=== PATIENT | male | born 1970 | race Caucasian/White ===

== ENCOUNTER 2023-07-19 02:00 | Emergency (ER) | payer BC, MEDICAID ==
[2023-07-19] MEDS ORDERED: Sodium Chloride 0.9% 10 ML Syringe FLUSH PRN (02:28)
[2023-07-19 02:32] LABS: BASOPHILS ABSOLUTE AUTO 0.12 10^3/uL (0.00-0.10); BASOPHILS PERCENT AUTO 1.1 % (0.0-1.0); EOSINOPHILS ABSOLUTE AUTO 0.83 10^3/uL (0.10-0.30); EOSINOPHILS PERCENT AUTO 7.3 % (1.0-3.0); HEMOGLOBIN 8.3 g/dL (13.0-17.0); IMMATURE GRAN ABSOLUTE AUTO 0.06 10^3/uL (0.00-0.50); IMMATURE GRAN PERCENT AUTO 0.5 % (0.0-5.0); LYMPHOCYTES ABSOLUTE AUTO 1.51 10^3/uL (1.00-4.00); LYMPHOCYTES PERCENT AUTO 13.2 % (20.0-40.0); MEAN CORPUSCULAR HEMOGLOBIN 28.4 pg (27.0-31.0); MEAN CORPUSCULAR HGB CONC 31.9 g/dL (32.0-36.0); MEAN PLATELET VOLUME 10.1 fL (7.4-10.4); MONOCYTES PERCENT AUTO 9.6 % (2.0-8.0); NEUTROPHILS ABSOLUTE AUTO 7.78 10^3/uL (2.50-7.00); NEUTROPHILS PERCENT AUTO 68.3 % (50.0-70.0); PLATELET COUNT,PLT 424 10^3/uL (150-400); RED BLOOD CELL COUNT 2.92 10^6/uL (4.50-6.00); RED CELL DISTRIBUTION WIDTH 17.7 % (11.5-14.5)
[2023-07-19 02:48] LABS: ALBUMIN 3.15 g/dL (3.40-5.00); ANION GAP 18.8 mmol/L (5-15); BILIRUBIN TOTAL 0.3 mg/dL (0.2-1.0); CALCIUM 9.4 mg/dL (8.7-10.3); CARBON DIOXIDE,CO2 26.1 mmol/L (21.0-32.0); EST CRCL DRUG DOSING (CG) 12.81 mL/min; POTASSIUM,K 3.9 mmol/L (3.5-5.1); PROTEIN TOTAL,TP 8.1 g/dL (6.4-8.2)
[2023-07-19 03:05] LABS: INR 1.1 (0.9-1.1)
[2023-07-19 03:46] LABS: APPEARANCE,URINE CLEAR (CLEAR); BILIRUBIN,URINE NEGATIVE (NEGATIVE); COLOR,URINE YELLOW (YELLOW); GLUCOSE,URINE 100 mg/dL (NEGATIVE); KETONES,URINE NEGATIVE (NEGATIVE); LEUKOCYTE ESTERASE,URINE NEGATIVE (NEGATIVE); NITRITE,URINE NEGATIVE (NEGATIVE); OCCULT BLOOD,URINE TRACE-INTACT (NEGATIVE); PH,URINE 8.5 (5.0-9.0); PROTEIN,URINE 100 mg/dL (NEGATIVE); UROBILINOGEN,URINE 0.2 E.U./dL (0.2-1.0)
[2023-07-19 03:47] LABS: BACTERIA,URINE OCCASIONAL /HPF (NONE TO FEW); EPITHELIAL CELLS,URINE OCCASIONAL /LPF; RBC,URINE 0-5 /HPF (0-5); WBC,URINE 0-5 /HPF (0-5)
[2023-07-19] MEDS ORDERED: Iopamidol 755 Mg/ML 100 ML Bottle IV ONE (04:04)
[2023-07-19] MEDS ORDERED: Sodium Chloride 0.9% 100 ML IV SCH (04:15)
[2023-07-19] MEDS ORDERED: Furosemide 40 MG/4 ML VIAL IVPUSH ONE (05:07)
[2023-07-19] MEDS ORDERED: Furosemide 40 MG/4 ML VIAL ONE (05:08)
[2023-07-19 06:20] LABS: INFLUENZA A NAA NEGATIVE (NEGATIVE); INFLUENZA B NAA NEGATIVE (NEGATIVE); RESPIRATORY SYNCYTIAL VIR NAA NEGATIVE (NEGATIVE)
[2023-07-19] MEDS ORDERED: Ondansetron 4 MG/2 ML SDV IVPUSH ONE (06:31)
[2023-07-19 06:41] LABS: CORONAVIRUS COVID-19 NAA NEGATIVE (NEGATIVE)
== END 2023-07-19 07:22 ==
LOC: KA.ED 02:00
DX: T81.49XA Infection following a procedure, other surgical site, initial encounter (principal); S31.109A Unspecified open wound of abdominal wall, unspecified quadrant without penetration into peritoneal cavity, initial encounter; J81.1 Chronic pulmonary edema; E11.22 Type 2 diabetes mellitus with diabetic chronic kidney disease; I12.0 Hypertensive chronic kidney disease with stage 5 chronic kidney disease or end stage renal disease; N18.6 End stage renal disease; D63.1 Anemia in chronic kidney disease; I25.2 Old myocardial infarction; R09.02 Hypoxemia; I71.20 Thoracic aortic aneurysm, without rupture, unspecified; I71.23 Aneurysm of the descending thoracic aorta, without rupture; J90 Pleural effusion, not elsewhere classified; R79.89 Other specified abnormal findings of blood chemistry; E78.00 Pure hypercholesterolemia, unspecified; Z99.2 Dependence on renal dialysis; Z46.89 Encounter for fitting and adjustment of other specified devices; Z20.822 Contact with and (suspected) exposure to COVID-19; Z95.5 Presence of coronary angioplasty implant and graft; E66.9 Obesity, unspecified; Z87.891 Personal history of nicotine dependence; Z79.899 Other long term (current) drug therapy; Z79.02 Long term (current) use of antithrombotics/antiplatelets; Z79.82 Long term (current) use of aspirin; Z88.1 Allergy status to other antibiotic agents; Z88.8 Allergy status to other drugs, medicaments and biological substances
CPT/HCPCS: 0241U; 36416; 71045; 71275; 80053; 81001; 82140; 83880; 84484; 85025; 85379; 85610; 86140; 93005; 93010; 96374; 96375; 99284; 99285-25; J1940; J2405; J3490; Q9967

== ENCOUNTER 2023-08-01 15:49 | Inpatient (IN) | payer MEDICAID ==
[2023-08-01] MEDS ORDERED: Sodium Chloride 0.9% 10 ML Syringe FLUSH PRN (16:07)
[2023-08-01 16:17] LABS: BASOPHILS ABSOLUTE AUTO 0.16 10^3/uL (0.00-0.10); BASOPHILS PERCENT AUTO 1.1 % (0.0-1.0); EOSINOPHILS ABSOLUTE AUTO 0.77 10^3/uL (0.10-0.30); EOSINOPHILS PERCENT AUTO 5.4 % (1.0-3.0); HEMATOCRIT 27.3 % (40.0-52.0); HEMOGLOBIN 8.5 g/dL (13.0-17.0); IMMATURE GRAN ABSOLUTE AUTO 0.07 10^3/uL (0.00-0.50); IMMATURE GRAN PERCENT AUTO 0.5 % (0.0-5.0); LYMPHOCYTES ABSOLUTE AUTO 1.91 10^3/uL (1.00-4.00); LYMPHOCYTES PERCENT AUTO 13.5 % (20.0-40.0); MEAN CORPUSCULAR HEMOGLOBIN 28.4 pg (27.0-31.0); MEAN CORPUSCULAR HGB CONC 31.1 g/dL (32.0-36.0); MEAN CORPUSCULAR VOLUME 91.3 fL (82.0-92.0); MEAN PLATELET VOLUME 10.2 fL (7.4-10.4); MONOCYTES ABSOLUTE AUTO 1.43 10^3/uL (0.10-0.80); MONOCYTES PERCENT AUTO 10.1 % (2.0-8.0); NEUTROPHILS ABSOLUTE AUTO 9.85 10^3/uL (2.50-7.00); NEUTROPHILS PERCENT AUTO 69.4 % (50.0-70.0); PLATELET COUNT,PLT 480 10^3/uL (150-400); RED BLOOD CELL COUNT 2.99 10^6/uL (4.50-6.00); RED CELL DISTRIBUTION WIDTH 19.1 % (11.5-14.5); WHITE BLOOD CELL COUNT,WBC 14.19 10^3/uL (5.00-10.00)
[2023-08-01 16:19] LABS: BASE EXCESS ARTERIAL -1 mmol/L (-2-3); BICARBONATE,ARTERIAL 23.1 mmol/L (22-26); O2 DELIVERY DEVICE NASAL CANNULA; O2 SATURATION ARTERIAL 97 % (95-98); PCO2 ARTERIAL 35 mmHG (35-45); PH,ARTERIAL 7.43 (7.35-7.45); PO2 ARTERIAL 92 mmHG (80-105)
[2023-08-01 16:35] LABS: ALANINE AMINOTRANSFERASE,ALT 13 U/L (14-63); ALBUMIN 3.29 g/dL (3.40-5.00); ALKALINE PHOSPHATASE 119 U/L (46-116); ANION GAP 18.7 mmol/L (5-15); ASPARTATE AMNIOTRANSFERASE,AST 13 U/L (15-37); BILIRUBIN TOTAL 0.3 mg/dL (0.2-1.0); CALCIUM 9.8 mg/dL (8.7-10.3); CARBON DIOXIDE,CO2 26.6 mmol/L (21.0-32.0); CHLORIDE,CL 100 mmol/L (98-107); CREATININE 6.94 mg/dL (0.51-1.17); GLUCOSE RANDOM 150 mg/dL (70-140); POTASSIUM,K 5.3 mmol/L (3.5-5.1); PROTEIN TOTAL,TP 7.9 g/dL (6.4-8.2); SODIUM,NA 140 mmol/L (136-145)
[2023-08-01 16:36] LABS: BLOOD UREA NITROGEN,BUN 70 mg/dL (7-18); ESTIMATED GFR 9 mL/min (>=60)
[2023-08-01 17:17] LABS: AMPHETAMINES SCREEN, URINE NEGATIVE (NEGATIVE); BARBITURATE SCREEN,URINE NEGATIVE (NEGATIVE); BENZODIAZEPINES SCREEN,URINE NEGATIVE (NEGATIVE); COCAINE METABOLITES,URINE NEGATIVE (NEGATIVE); METHADONE SCREEN, URINE NEGATIVE (NEGATIVE); METHAMPHETAMINES SCREEN, URINE NEGATIVE (NEGATIVE); OXYCODONE SCREEN,URINE NEGATIVE (NEGATIVE); PCP SCREEN,URINE NEGATIVE (NEGATIVE); PROPOXYPHENE SCREEN,URINE NEGATIVE (NEGATIVE); TCA SCREEN,URINE NEGATIVE (NEGATIVE); THC SCREEN,URINE 50 NG/ML NEGATIVE (NEGATIVE)
[2023-08-01 17:56] LABS: APPEARANCE,URINE CLEAR (CLEAR); BILIRUBIN,URINE NEGATIVE (NEGATIVE); COLOR,URINE YELLOW (YELLOW); GLUCOSE,URINE 100 mg/dL (NEGATIVE); KETONES,URINE NEGATIVE (NEGATIVE); LEUKOCYTE ESTERASE,URINE NEGATIVE (NEGATIVE); NITRITE,URINE NEGATIVE (NEGATIVE); OCCULT BLOOD,URINE TRACE-LYSED (NEGATIVE); PH,URINE 8.5 (5.0-9.0); PROTEIN,URINE 100 mg/dL (NEGATIVE); UROBILINOGEN,URINE 0.2 E.U./dL (0.2-1.0)
[2023-08-01 17:57] LABS: BACTERIA,URINE RARE /HPF (NONE TO FEW); EPITHELIAL CELLS,URINE RARE /LPF; RBC,URINE 0-5 /HPF (0-5); WBC,URINE 0-5 /HPF (0-5)
[2023-08-01] MEDS ORDERED: oxyCODONE 5 MG Tab PO PRN (21:35)
[2023-08-01] MEDS ORDERED: Ondansetron 4 MG/2 ML SDV IV PRN (21:45)
[2023-08-01] MEDS ORDERED: Sodium Chloride 0.9% 500 ML IV SCH (21:45)
[2023-08-01] MEDS ORDERED: LORazepam 2 MG/ML SDV IVPUSH ONE (22:00)
[2023-08-01] MEDS ORDERED: LORazepam 0.5 MG Tab PO PRN (22:01)
[2023-08-01] MEDS: Metoprolol Tartrate 50 MG Tab PO SCH (22:32)
[2023-08-01] MEDS: Sucralfate 1 GM Tab PO SCH (22:32)
[2023-08-01] MEDS: Isosorbide Mononitrate 30 MG Tab.ER PO SCH (22:35)
[2023-08-01] MEDS: Heparin Sodium 5,000 Units/ML Vial SUBCUT SCH (22:37)
[2023-08-01] MEDS: Cefepime 1 GM in Sodium Chloride 0.9% 50 ML IV SCH (22:39)
[2023-08-02] MEDS ORDERED: Haloperidol Lactate 5 MG/ML SDV IM ONE ×2 (00:22→16:22)
[2023-08-02] MEDS: LORazepam 2 MG/ML SDV IVPUSH PRN ×3 (02:29→10:13)
[2023-08-02] MEDS: Heparin Sodium 5,000 Units/ML Vial SUBCUT SCH ×4 (05:32→21:11)
[2023-08-02 07:13] LABS: BASOPHILS ABSOLUTE AUTO 0.21 10^3/uL (0.00-0.10); BASOPHILS PERCENT AUTO 1.5 % (0.0-1.0); EOSINOPHILS ABSOLUTE AUTO 0.72 10^3/uL (0.10-0.30); HEMATOCRIT 29.8 % (40.0-52.0); HEMOGLOBIN 9.1 g/dL (13.0-17.0); IMMATURE GRAN ABSOLUTE AUTO 0.05 10^3/uL (0.00-0.50); IMMATURE GRAN PERCENT AUTO 0.3 % (0.0-5.0); LYMPHOCYTES ABSOLUTE AUTO 2.09 10^3/uL (1.00-4.00); LYMPHOCYTES PERCENT AUTO 14.6 % (20.0-40.0); MEAN CORPUSCULAR HEMOGLOBIN 28.1 pg (27.0-31.0); MEAN CORPUSCULAR HGB CONC 30.5 g/dL (32.0-36.0); MONOCYTES ABSOLUTE AUTO 1.22 10^3/uL (0.10-0.80); MONOCYTES PERCENT AUTO 8.5 % (2.0-8.0); NEUTROPHILS ABSOLUTE AUTO 10.05 10^3/uL (2.50-7.00); NEUTROPHILS PERCENT AUTO 70.1 % (50.0-70.0); PLATELET COUNT,PLT 525 10^3/uL (150-400); RED BLOOD CELL COUNT 3.24 10^6/uL (4.50-6.00); RED CELL DISTRIBUTION WIDTH 19.2 % (11.5-14.5); WHITE BLOOD CELL COUNT,WBC 14.34 10^3/uL (5.00-10.00)
[2023-08-02 07:27] LABS: ANION GAP 18.8 mmol/L (5-15); CALCIUM 9.9 mg/dL (8.7-10.3); CARBON DIOXIDE,CO2 24.4 mmol/L (21.0-32.0); EST CRCL DRUG DOSING (CG) 11.34 mL/min; POTASSIUM,K 5.2 mmol/L (3.5-5.1)
[2023-08-02 07:30] LABS: CREATININE 7.54 mg/dL (0.51-1.17)
[2023-08-02] MEDS: amLODIPine 5 MG Tab PO SCH (08:04)
[2023-08-02] MEDS: Sucralfate 1 GM Tab PO SCH ×4 (08:04→21:05)
[2023-08-02] MEDS: Pantoprazole 40 MG Tab.CR PO SCH ×2 (08:04→17:36)
[2023-08-02] MEDS: Isosorbide Mononitrate 30 MG Tab.ER PO SCH (08:04)
[2023-08-02] MEDS: Clopidogrel 75 MG Tab PO SCH (08:04)
[2023-08-02] MEDS: Aspirin 81 MG Tab.Chew PO SCH (08:04)
[2023-08-02] MEDS: Metoprolol Tartrate 50 MG Tab PO SCH ×2 (08:04→21:06)
[2023-08-02] MEDS: Cefepime 1 GM in Sodium Chloride 0.9% 50 ML IV SCH (09:44)
[2023-08-02] MEDS: Haloperidol Lactate 5 MG/ML SDV IM PRN ×2 (12:29→20:33)
[2023-08-02] MEDS: OLANZapine 5 MG Tab PO SCH (21:06)
[2023-08-02] MEDS: atorvaSTATin 40 MG Tab PO SCH (21:06)
[2023-08-03 01:54] LABS: O2 DELIVERY DEVICE NON REBR MASK
[2023-08-03 01:56] LABS: BASE EXCESS ARTERIAL -5 mmol/L (-2-3); BICARBONATE,ARTERIAL 18.1 mmol/L (22-26); O2 SATURATION ARTERIAL 97 % (95-98); PCO2 ARTERIAL 27 mmHG (35-45); PH,ARTERIAL 7.43 (7.35-7.45); PO2 ARTERIAL 88 mmHG (80-105)
[2023-08-03] MEDS ORDERED: Acetaminophen 650 MG Supp RECTAL PRN (02:15)
[2023-08-03] MEDS: Heparin Sodium 5,000 Units/ML Vial SUBCUT SCH ×3 (05:15→23:00)
[2023-08-03 07:07] LABS: HEMATOCRIT 30.4 % (40.0-52.0); HEMOGLOBIN 9.6 g/dL (13.0-17.0); MEAN CORPUSCULAR HEMOGLOBIN 28.5 pg (27.0-31.0); MEAN CORPUSCULAR HGB CONC 31.6 g/dL (32.0-36.0); MEAN CORPUSCULAR VOLUME 90.2 fL (82.0-92.0); MEAN PLATELET VOLUME 9.7 fL (7.4-10.4); PLATELET COUNT,PLT 513 10^3/uL (150-400); RED BLOOD CELL COUNT 3.37 10^6/uL (4.50-6.00); RED CELL DISTRIBUTION WIDTH 19.3 % (11.5-14.5); WHITE BLOOD CELL COUNT,WBC 14.97 10^3/uL (5.00-10.00)
[2023-08-03 07:27] LABS: ALBUMIN 3.19 g/dL (3.40-5.00); BILIRUBIN TOTAL 0.6 mg/dL (0.2-1.0); CALCIUM 10.4 mg/dL (8.7-10.3); CARBON DIOXIDE,CO2 20.3 mmol/L (21.0-32.0); EST CRCL DRUG DOSING (CG) 9.68 mL/min; POTASSIUM,K 5.3 mmol/L (3.5-5.1); PROTEIN TOTAL,TP 8.2 g/dL (6.4-8.2)
[2023-08-03] MEDS: Pantoprazole 40 MG Tab.CR PO SCH ×2 (07:29→16:44)
[2023-08-03 07:32] LABS: CREATININE 8.83 mg/dL (0.51-1.17)
[2023-08-03] MEDS: Clopidogrel 75 MG Tab PO SCH (08:38)
[2023-08-03] MEDS: Metoprolol Tartrate 50 MG Tab PO SCH ×2 (08:38→21:44)
[2023-08-03] MEDS: Isosorbide Mononitrate 30 MG Tab.ER PO SCH (08:38)
[2023-08-03] MEDS: Aspirin 81 MG Tab.Chew PO SCH (08:38)
[2023-08-03] MEDS: Sucralfate 1 GM Tab PO SCH ×4 (08:38→21:43)
[2023-08-03] MEDS: amLODIPine 5 MG Tab PO SCH (08:38)
[2023-08-03] MEDS: Cefepime 1 GM in Sodium Chloride 0.9% 50 ML IV SCH (08:51)
[2023-08-03] MEDS ORDERED: Sodium Chloride 0.9% 50 ML SDV FLUSH SCH (09:00)
[2023-08-03] MEDS ORDERED: Furosemide 40 MG/4 ML VIAL IVPUSH ONE (14:26)
[2023-08-03] MEDS: atorvaSTATin 40 MG Tab PO SCH (21:43)
[2023-08-03] MEDS: OLANZapine 5 MG Tab PO SCH (21:44)
== END 2023-08-04 00:52 | DRG 70 ==
LOC: KA.ED 15:49 → KA.MS 20:40 → OBSVTOIN 08-02 16:29
PROVIDERS: ADMIT Nurse Practitioner Family; ATTEND Internal Medicine
DX: G93.41 Metabolic encephalopathy (principal); N18.6 End stage renal disease; T81.49XA Infection following a procedure, other surgical site, initial encounter; I12.9 Hypertensive chronic kidney disease with stage 1 through stage 4 chronic kidney disease, or unspecified chronic kidney disease; I25.10 Atherosclerotic heart disease of native coronary artery without angina pectoris; I25.2 Old myocardial infarction; E78.00 Pure hypercholesterolemia, unspecified; S31.109D Unspecified open wound of abdominal wall, unspecified quadrant without penetration into peritoneal cavity, subsequent encounter; E11.22 Type 2 diabetes mellitus with diabetic chronic kidney disease; E66.9 Obesity, unspecified; D63.1 Anemia in chronic kidney disease; D72.829 Elevated white blood cell count, unspecified; E11.51 Type 2 diabetes mellitus with diabetic peripheral angiopathy without gangrene; Z95.5 Presence of coronary angioplasty implant and graft; Z87.891 Personal history of nicotine dependence; Z88.1 Allergy status to other antibiotic agents; Z99.2 Dependence on renal dialysis; Z88.8 Allergy status to other drugs, medicaments and biological substances; Z79.82 Long term (current) use of aspirin; Z79.899 Other long term (current) drug therapy
CPT/HCPCS: 36415; 36600; 70450; 71045; 74176; 80048; 80053; 80305-QW; 80307; 81001; 82803; 83605; 83735; 84484; 85025; 85027; 87040; 93005; 93010; 96361; 96365; 96366; 96372; 96375; 96376; 99284; 99285; A9270-GY; G0378; J0692; J1630; J1644; J1940; J2060; J3490; J7030; Q3014